=== PATIENT | male | born 1960 | race African-American/Black ===

== ENCOUNTER → 2016-12-24 | Outpatient (CLI) | payer BC ==
[~2016-12-24] MED LIST: ALLO100T PO; ATOR40TA70 PO; CHOL100026 PO; DIALYVITE PO; METO-296 PO; SEVE800T8 PO; [UNRECOGNIZED DRUG - OTHER] PO
== END | disposition home or self-care (01) ==
LOC: CT 08:57
PROVIDERS: ATTEND Urology
DX: Z00.01 Encounter for general adult medical examination with abnormal findings (principal); Z85.528 Personal history of other malignant neoplasm of kidney; Z90.5 Acquired absence of kidney
CPT/HCPCS: 74150

== ENCOUNTER → 2017-02-06 | Outpatient (CLI) | payer BC ==
[2017-02-07 10:09] LABS: HBSAG SCREEN Negative (Negative)
== END | disposition home or self-care (01) ==
LOC: LAB 06:36
PROVIDERS: ATTEND Internal Medicine Nephrology
DX: N18.6 End stage renal disease (principal)
CPT/HCPCS: 36415; 71010; 84550; 86803; 87186; 87340; 93005

== ENCOUNTER → 2017-03-18 | Outpatient (CLI) | payer BC ==
[2017-03-18 13:09] LABS: INR 1.1; PARTIAL THROMBOPLASTIN TIME 25.7 sec (24.0-34.0); PROTHROMBIN TIME 11.4 sec
[2017-03-18 13:12] LABS: BASOPHILS % 1.2 % (0.0-2.0); EOSINOPHILS % 1.8 % (0.0-5.0); HEMATOCRIT. 35.2 % (42.0-52.0); HEMOGLOBIN. 11.7 g/dL (14.0-18.0); LYMPHOCYTES % 25.3 % (20.0-50.0); MEAN CORPUSCULAR HEMOGLOBIN 31.9 pg (28.0-32.0); MEAN CORPUSCULAR VOLUME 95.6 fL (80.0-94.0); MEAN PLATELET VOLUME 8.4 fl (7.4-10.4); MONOCYTES % 8.6 % (2.0-8.0); NEUTROPHILS % 63.1 % (40.0-76.0); PLATELET 168 x1000/uL (130-400); RED BLOOD CELL COUNT 3.68 mill/uL (4.7-6.1); RED CELL DISTRIBUTION WIDTH 13.1 % (11.6-14.6)
[2017-03-18 13:30] LABS: CARBON DIOXIDE 29 mEq/L (21-32); CHLORIDE 99 mEq/L (98-107)
== END | disposition home or self-care (01) ==
LOC: LAB 12:39
DX: Z01.818 Encounter for other preprocedural examination (principal); N19 Unspecified kidney failure
CPT/HCPCS: 36415; 80053; 83615; 85025; 85610; 85730

== ENCOUNTER → 2017-03-26 | Outpatient (CLI) | payer BC ==
[~2017-03-26] MED LIST changes: +REGADENOSON 0.4 MG/5 ML IV ONE
== END | disposition home or self-care (01) ==
LOC: CARD 06:07
DX: Z01.818 Encounter for other preprocedural examination (principal); I10 Essential (primary) hypertension; Z85.53 Personal history of malignant neoplasm of renal pelvis
CPT/HCPCS: 71020; 78452; 93017; A9500; J2785

== ENCOUNTER → 2017-04-11 | Outpatient (CLI) | payer BC ==
[~2017-04-11] MED LIST changes: -CHOL100026 PO; +CHOL100044 PO; -METO-296 PO; +METO-396 PO; -REGADENOSON 0.4 MG/5 ML IV ONE
[2017-04-11 11:31] LABS: BASOPHILS % 0.5 % (0.0-2.0); EOSINOPHILS % 3.7 % (0.0-5.0); HEMOGLOBIN. 8.3 g/dL (14.0-18.0); LYMPHOCYTES % 9.5 % (20.0-50.0); MEAN CORPUSCULAR HEMOGLOBIN 30.6 pg (28.0-32.0); MEAN CORPUSCULAR VOLUME 92.4 fL (80.0-94.0); MEAN PLATELET VOLUME 7.3 fl (7.4-10.4); MONOCYTES % 9.1 % (2.0-8.0); NEUTROPHILS % 77.2 % (40.0-76.0); PLATELET 291 x1000/uL (130-400); RED CELL DISTRIBUTION WIDTH 13.7 % (11.6-14.6)
== END | disposition home or self-care (01) ==
LOC: LAB 11:04
DX: D64.9 Anemia, unspecified (principal); R19.7 Diarrhea, unspecified
CPT/HCPCS: 36415; 85025; 87493

== ENCOUNTER → 2017-05-07 | Outpatient (CLI) | payer BC | END | disposition home or self-care (01) | LOC: CARD 08:55 | PROVIDERS: ATTEND Specialist | DX: I10 Essential (primary) hypertension (principal); I51.81 Takotsubo syndrome; R94.31 Abnormal electrocardiogram [ECG] [EKG] | CPT/HCPCS: 93306 ==

== ENCOUNTER → 2017-05-28 | Outpatient (CLI) | payer BC | END | disposition home or self-care (01) | LOC: PVL 09:17 | PROVIDERS: ATTEND Surgery Vascular Surgery | DX: N18.6 End stage renal disease (principal); M79.602 Pain in left arm; Z99.2 Dependence on renal dialysis ==

== ENCOUNTER 2017-06-26 06:31 | Day surgery (SDC) | payer BC ==
[2017-06-26] MEDS ORDERED: LIDOCAINE HCL 1% 20ML VIAL (Pyxis) INJ ONE (07:30)
[2017-06-26] MEDS ORDERED: IOVERSOL 240MG/ML 100ML BOTTLE IV ONE (07:36)
[2017-06-26] MEDS ORDERED: IOHEXOL-300 100 ML BOTTLE ONE (07:37)
[2017-06-26] MEDS ORDERED: MIDAZOLAM HCL 2 MG/2 ML VIAL ONE (08:35)
[2017-06-26] MEDS ORDERED: FENTANYL CITRATE/PF 50MCG/ML 2ML VIAL ONE (08:35)
== END 2017-06-26 15:00 | disposition home or self-care (01) ==
LOC: CCL 06:31
PROVIDERS: ATTEND Specialist
DX: I42.0 Dilated cardiomyopathy (principal); I13.2 Hypertensive heart and chronic kidney disease with heart failure and with stage 5 chronic kidney disease, or end stage renal disease; I50.9 Heart failure, unspecified; N18.6 End stage renal disease; E78.5 Hyperlipidemia, unspecified; K21.9 Gastro-esophageal reflux disease without esophagitis; Z99.2 Dependence on renal dialysis
CPT/HCPCS: 36415; 80048; 93460; 99152; 99153; C1760; C1769; C1887; C1893; J1644; J2250; J3010; J3490; Q9967

== ENCOUNTER → 2017-07-29 | Day surgery (SDC) | payer BC, MEDICARE | END | disposition home or self-care (01) | LOC: CARD 07:29 | PROVIDERS: ATTEND Specialist | DX: I73.89 Other specified peripheral vascular diseases (principal) | CPT/HCPCS: 93225; 93226 ==

== ENCOUNTER → 2017-09-19 | Outpatient (CLI) | payer BC, MEDICARE ==
[2017-09-19 14:42] LABS: BASOPHILS % 1.2 % (0.0-2.0); EOSINOPHILS % 0.8 % (0.0-5.0); HEMATOCRIT. 36.4 % (42.0-52.0); LYMPHOCYTES % 16.1 % (20.0-50.0); MEAN CORPUSCULAR HEMOGLOBIN 32.3 pg (28.0-32.0); MEAN CORPUSCULAR VOLUME 97.7 fL (80.0-94.0); MEAN PLATELET VOLUME 7.5 fl (7.4-10.4); MONOCYTES % 5.9 % (2.0-8.0); PLATELET 250 x1000/uL (130-400); RED BLOOD CELL COUNT 3.73 mill/uL (4.7-6.1); RED CELL DISTRIBUTION WIDTH 17.6 % (11.6-14.6)
[2017-09-19 15:28] LABS: CHLORIDE 98 mEq/L (98-107)
== END | disposition home or self-care (01) ==
LOC: LAB 14:24
PROVIDERS: ATTEND Internal Medicine Hematology & Oncology
DX: C64.1 Malignant neoplasm of right kidney, except renal pelvis (principal)
CPT/HCPCS: 36415; 80053; 85025

== ENCOUNTER → 2017-10-09 | Outpatient (CLI) | payer BC, MEDICARE ==
[2017-10-09 11:02] LABS: BASOPHILS % 0.7 % (0.0-2.0); EOSINOPHILS % 0.8 % (0.0-5.0); HEMATOCRIT. 31.6 % (42.0-52.0); HEMOGLOBIN. 10.5 g/dL (14.0-18.0); LYMPHOCYTES % 11.9 % (20.0-50.0); MEAN CORPUSCULAR HEMOGLOBIN 33.3 pg (28.0-32.0); MEAN CORPUSCULAR VOLUME 100.3 fL (80.0-94.0); MEAN PLATELET VOLUME 8.7 fl (7.4-10.4); NEUTROPHILS % 72.6 % (40.0-76.0); PLATELET 183 x1000/uL (130-400); RED BLOOD CELL COUNT 3.15 mill/uL (4.7-6.1); RED CELL DISTRIBUTION WIDTH 14.3 % (11.6-14.6)
[2017-10-09 11:12] LABS: CHLORIDE 94 mEq/L (98-107)
== END | disposition home or self-care (01) ==
LOC: LAB 09:54
DX: C64.9 Malignant neoplasm of unspecified kidney, except renal pelvis (principal); R94.31 Abnormal electrocardiogram [ECG] [EKG]
CPT/HCPCS: 36415; 80053; 85025; 93005

== ENCOUNTER → 2017-11-12 | Outpatient (CLI) | payer BC ==
[2017-11-12 08:44] LABS: BASOPHILS % 0.7 % (0.0-2.0); HEMATOCRIT. 37.8 % (42.0-52.0); HEMOGLOBIN. 12.8 g/dL (14.0-18.0); LYMPHOCYTES % 20.3 % (20.0-50.0); MEAN CORPUSCULAR VOLUME 97.4 fL (80.0-94.0); MEAN PLATELET VOLUME 7.6 fl (7.4-10.4); MONOCYTES % 8.8 % (2.0-8.0); NEUTROPHILS % 68.2 % (40.0-76.0); PLATELET 188 x1000/uL (130-400); RED BLOOD CELL COUNT 3.88 mill/uL (4.7-6.1); RED CELL DISTRIBUTION WIDTH 14.5 % (11.6-14.6)
[2017-11-12 08:53] LABS: CHLORIDE 94 mEq/L (98-107)
== END | disposition home or self-care (01) ==
LOC: LAB 07:29
PROVIDERS: ATTEND Radiology Diagnostic Radiology
DX: C64.9 Malignant neoplasm of unspecified kidney, except renal pelvis (principal)
CPT/HCPCS: 36415; 80053; 85025

== ENCOUNTER → 2017-11-18 | Outpatient (CLI) | payer BC ==
[2017-11-18 09:24] LABS: BASOPHILS % 0.9 % (0.0-2.0); EOSINOPHILS % 2.1 % (0.0-5.0); HEMATOCRIT. 35.7 % (42.0-52.0); HEMOGLOBIN. 11.7 g/dL (14.0-18.0); LYMPHOCYTES % 34.6 % (20.0-50.0); MEAN CORPUSCULAR HEMOGLOBIN 32.2 pg (28.0-32.0); MEAN CORPUSCULAR VOLUME 98.5 fL (80.0-94.0); MEAN PLATELET VOLUME 7.5 fl (7.4-10.4); MONOCYTES % 9.8 % (2.0-8.0); NEUTROPHILS % 52.6 % (40.0-76.0); PLATELET 211 x1000/uL (130-400); RED BLOOD CELL COUNT 3.63 mill/uL (4.7-6.1); RED CELL DISTRIBUTION WIDTH 14.4 % (11.6-14.6)
[2017-11-18 09:31] LABS: CHLORIDE 97 mEq/L (98-107)
[2017-11-18 09:40] LABS: LDL CHOLESTEROL 52 mg/dL (5-100)
[2017-11-18 09:41] LABS: HDL CHOLESTEROL 100 mg/dL (40-59)
[2017-11-18 09:42] LABS: T4 FREE 0.72 ng/dL (0.76-1.46)
[2017-11-19 09:06] LABS: VITAMIN D 25-OH 49.9 ng/mL (30.0-100.0)
[2017-11-22 05:16] LABS: ALDOSTERONE 3.7 ng/dL (0.0-30.0)
== END | disposition home or self-care (01) ==
LOC: LAB 07:07
PROVIDERS: ATTEND Internal Medicine Endocrinology, Diabetes & Metabolism
DX: I10 Essential (primary) hypertension (principal); E78.5 Hyperlipidemia, unspecified; N19 Unspecified kidney failure; R73.9 Hyperglycemia, unspecified
CPT/HCPCS: 36415; 80053; 80061; 82024; 82088; 82306; 82533; 83036; 84439; 84443; 85025

== ENCOUNTER → 2017-12-15 | Outpatient (CLI) | payer BC ==
[2017-12-15 13:27] LABS: BASOPHILS % 1.1 % (0.0-2.0); EOSINOPHILS % 1.6 % (0.0-5.0); HEMATOCRIT. 36.6 % (42.0-52.0); HEMOGLOBIN. 12.1 g/dL (14.0-18.0); LYMPHOCYTES % 29.9 % (20.0-50.0); MEAN CORPUSCULAR HEMOGLOBIN 32.4 pg (28.0-32.0); MEAN CORPUSCULAR VOLUME 97.5 fL (80.0-94.0); MEAN PLATELET VOLUME 7.8 fl (7.4-10.4); MONOCYTES % 8.5 % (2.0-8.0); NEUTROPHILS % 58.9 % (40.0-76.0); PLATELET 189 x1000/uL (130-400); RED BLOOD CELL COUNT 3.75 mill/uL (4.7-6.1)
[2017-12-15 13:39] LABS: CHLORIDE 101 mEq/L (98-107)
[2017-12-15 13:48] LABS: T4 FREE 0.75 ng/dL (0.76-1.46)
== END | disposition home or self-care (01) ==
LOC: LAB 12:31
PROVIDERS: ATTEND Internal Medicine Nephrology
DX: C64.9 Malignant neoplasm of unspecified kidney, except renal pelvis (principal); N18.6 End stage renal disease; I51.7 Cardiomegaly; E03.9 Hypothyroidism, unspecified
CPT/HCPCS: 36415; 71045; 80053; 84439; 84443; 85025; 93005

== ENCOUNTER → 2018-02-09 | Outpatient (CLI) | payer BC | END | disposition home or self-care (01) | LOC: LAB 12:09 | PROVIDERS: ATTEND Radiology Diagnostic Radiology | DX: C64.9 Malignant neoplasm of unspecified kidney, except renal pelvis (principal); E03.9 Hypothyroidism, unspecified; I12.0 Hypertensive chronic kidney disease with stage 5 chronic kidney disease or end stage renal disease; N18.6 End stage renal disease; E78.5 Hyperlipidemia, unspecified | CPT/HCPCS: 36415; 80048 ==

== ENCOUNTER → 2018-03-09 | Outpatient (CLI) | payer BC | END | disposition home or self-care (01) | LOC: CARD 11:48 | PROVIDERS: ATTEND Specialist | DX: I12.0 Hypertensive chronic kidney disease with stage 5 chronic kidney disease or end stage renal disease (principal); N18.6 End stage renal disease; E78.5 Hyperlipidemia, unspecified; E03.9 Hypothyroidism, unspecified | CPT/HCPCS: 93005 ==

== ENCOUNTER → 2018-03-27 | Outpatient (CLI) | payer BC ==
[2018-03-27 08:35] LABS: BASOPHILS % 1.3 % (0.0-2.0); EOSINOPHILS % 3.7 % (0.0-5.0); HEMATOCRIT. 39.2 % (42.0-52.0); HEMOGLOBIN. 13.3 g/dL (14.0-18.0); LYMPHOCYTES % 19.2 % (20.0-50.0); MEAN CORPUSCULAR VOLUME 97.4 fL (80.0-94.0); MEAN PLATELET VOLUME 8.1 fl (7.4-10.4); MONOCYTES % 10.3 % (2.0-8.0); NEUTROPHILS % 65.5 % (40.0-76.0); PLATELET 247 x1000/uL (130-400); RED BLOOD CELL COUNT 4.02 mill/uL (4.7-6.1)
[2018-03-27 09:14] LABS: CHLORIDE 94 mEq/L (98-107)
[2018-03-27 09:25] LABS: LDL CHOLESTEROL 50 mg/dL (5-100)
[2018-03-27 09:27] LABS: T4 FREE 0.83 ng/dL (0.76-1.46)
[2018-03-27 09:28] LABS: HDL CHOLESTEROL 84 mg/dL (40-59)
[2018-03-28 09:08] LABS: VITAMIN D 25-OH 52.7 ng/mL (30.0-100.0)
== END | disposition home or self-care (01) ==
LOC: LAB 06:35
PROVIDERS: ATTEND Internal Medicine Endocrinology, Diabetes & Metabolism
DX: I10 Essential (primary) hypertension (principal); E78.5 Hyperlipidemia, unspecified; R73.9 Hyperglycemia, unspecified; Z79.899 Other long term (current) drug therapy
CPT/HCPCS: 36415; 80053; 80061; 82024; 82088; 82306; 82533; 83036; 84439; 84443; 85025

== ENCOUNTER → 2018-06-05 | Outpatient (CLI) | payer BC | END | disposition home or self-care (01) | LOC: LAB 06:39 | PROVIDERS: ATTEND Radiology Diagnostic Radiology | DX: N28.89 Other specified disorders of kidney and ureter (principal); R94.31 Abnormal electrocardiogram [ECG] [EKG] | CPT/HCPCS: 93005 ==

== ENCOUNTER → 2018-07-22 | Outpatient (CLI) | payer BC ==
[2018-07-22 13:50] LABS: BASOPHILS % 1.1 % (0.0-2.0); EOSINOPHILS % 3.7 % (0.0-5.0); HEMATOCRIT. 35.6 % (42.0-52.0); HEMOGLOBIN. 12.1 g/dL (14.0-18.0); LYMPHOCYTES % 25.4 % (20.0-50.0); MEAN CORPUSCULAR HEMOGLOBIN 32.6 pg (28.0-32.0); MEAN CORPUSCULAR VOLUME 95.7 fL (80.0-94.0); MEAN PLATELET VOLUME 8.1 fl (7.4-10.4); MONOCYTES % 7.9 % (2.0-8.0); NEUTROPHILS % 61.9 % (40.0-76.0); PLATELET 122 x1000/uL (130-400); RED BLOOD CELL COUNT 3.72 mill/uL (4.7-6.1); RED CELL DISTRIBUTION WIDTH 15.4 % (11.6-14.6)
[2018-07-22 13:51] LABS: PARTIAL THROMBOPLASTIN TIME 26.2 sec (23.4-31.0); PROTHROMBIN TIME 9.9 sec (9.1-11.1)
[2018-07-22 14:10] LABS: CHLORIDE 98 mEq/L (98-107)
[2018-07-22 14:18] LABS: HDL CHOLESTEROL 110 mg/dL (40-59); LDL CHOLESTEROL 52 mg/dL (5-100)
[2018-07-24 09:06] LABS: VITAMIN D 25-OH 50.4 ng/mL (30.0-100.0)
[2018-07-30 08:22] LABS: ALDOSTERONE < 1.0 ng/dL (0.0-30.0)
== END | disposition home or self-care (01) ==
LOC: LAB 06:43
PROVIDERS: ATTEND Internal Medicine Endocrinology, Diabetes & Metabolism
DX: I10 Essential (primary) hypertension (principal); R73.9 Hyperglycemia, unspecified; E55.9 Vitamin D deficiency, unspecified; E27.49 Other adrenocortical insufficiency
CPT/HCPCS: 36415; 80061; 82024; 82088; 82306; 82533; 83036

== ENCOUNTER → 2018-10-30 | Outpatient (CLI) | payer BC ==
[2018-10-30 12:11] LABS: EOSINOPHILS % 3.9 % (0.0-5.0); HEMATOCRIT. 33.1 % (42.0-52.0); HEMOGLOBIN. 11.1 g/dL (14.0-18.0); MEAN CORPUSCULAR HEMOGLOBIN 32.5 pg (28.0-32.0); MEAN CORPUSCULAR VOLUME 96.6 fL (80.0-94.0); MEAN PLATELET VOLUME 8.1 fl (7.4-10.4); MONOCYTES % 8.6 % (2.0-8.0); NEUTROPHILS % 58.5 % (40.0-76.0); PLATELET 233 x1000/uL (130-400); RED BLOOD CELL COUNT 3.42 mill/uL (4.7-6.1); RED CELL DISTRIBUTION WIDTH 14.4 % (11.6-14.6)
[2018-10-30 13:01] LABS: CHLORIDE 99 mEq/L (98-107)
[2018-10-30 13:08] LABS: LDL CHOLESTEROL 43 mg/dL (5-100)
[2018-10-30 13:10] LABS: HDL CHOLESTEROL 106 mg/dL (40-59)
[2018-10-31 09:06] LABS: VITAMIN D 25-OH 39.9 ng/mL (30.0-100.0)
[2018-11-03 13:06] LABS: ALDOSTERONE < 1.0 ng/dL (0.0-30.0)
== END | disposition home or self-care (01) ==
LOC: LAB 06:12
PROVIDERS: ATTEND Radiology Diagnostic Radiology
DX: M79.604 Pain in right leg (principal); E78.5 Hyperlipidemia, unspecified; I10 Essential (primary) hypertension; E55.9 Vitamin D deficiency, unspecified; R73.9 Hyperglycemia, unspecified; Z85.528 Personal history of other malignant neoplasm of kidney
CPT/HCPCS: 36415; 73552; 80061; 82024; 82088; 82306; 82533; 83036

== ENCOUNTER → 2018-12-14 | Outpatient (CLI) | payer BC | END | disposition home or self-care (01) | LOC: CARD 09:07 | PROVIDERS: ATTEND Specialist | DX: I31.3 Pericardial effusion (noninflammatory) (principal); I51.7 Cardiomegaly; I51.89 Other ill-defined heart diseases | CPT/HCPCS: 93306 ==

== ENCOUNTER → 2019-01-01 | Outpatient (CLI) | payer BC ==
[2019-01-02 13:15] LABS: HIV SCREEN 4G Non Reactive (Non Reactive)
== END | disposition home or self-care (01) ==
LOC: LAB 06:26
PROVIDERS: ATTEND Internal Medicine
DX: I12.0 Hypertensive chronic kidney disease with stage 5 chronic kidney disease or end stage renal disease (principal); N18.6 End stage renal disease
CPT/HCPCS: 36415; 71045; 86803; 87389; 93005

== ENCOUNTER → 2019-03-05 | Outpatient (CLI) | payer BC | END | disposition home or self-care (01) | LOC: LAB 07:12 | PROVIDERS: ATTEND Radiology Diagnostic Radiology | DX: C64.9 Malignant neoplasm of unspecified kidney, except renal pelvis (principal) | CPT/HCPCS: 36415; 80048 ==

== ENCOUNTER → 2019-04-14 | Outpatient (CLI) | payer MEDICARE ==
[2019-04-14 20:49] LABS: BASOPHILS % 1.3 % (0.0-2.0); EOSINOPHILS % 3.1 % (0.0-5.0); HEMATOCRIT. 29.4 % (42.0-52.0); HEMOGLOBIN. 10.2 g/dL (14.0-18.0); LYMPHOCYTES % 28.4 % (20.0-50.0); MEAN CORPUSCULAR HEMOGLOBIN 33.1 pg (28.0-32.0); MEAN CORPUSCULAR VOLUME 95.8 fL (80.0-94.0); MEAN PLATELET VOLUME 8.2 fl (7.4-10.4); MONOCYTES % 9.5 % (2.0-8.0); NEUTROPHILS % 57.7 % (40.0-76.0); PLATELET 152 x1000/uL (130-400); RED BLOOD CELL COUNT 3.07 mill/uL (4.7-6.1); RED CELL DISTRIBUTION WIDTH 14.4 % (11.6-14.6)
== END | disposition home or self-care (01) ==
LOC: LAB 20:12
PROVIDERS: ATTEND Internal Medicine Nephrology
DX: D63.1 Anemia in chronic kidney disease (principal)
CPT/HCPCS: 36415

== ENCOUNTER 2019-05-14 00:57 | Inpatient (IN) | payer BC, MEDICARE ==
[~2019-05-14] VITALS: Ht 165.1 cm; Wt 78.0 kg
[2019-05-14] VITALS (65 sets, daily range): BP systolic 66–141; BP diastolic 32–94
[2019-05-14] MEDS ORDERED: ONDANSETRON HCL 4MG/2ML INJ IV STA (01:50)
[2019-05-14] MEDS ORDERED: SODIUM CHLORIDE 0.9% 1,000 ML IV ONE (01:50)
[2019-05-14 02:08] LABS: BASOPHILS % 1.5 % (0.0-2.0); EOSINOPHILS % 3.3 % (0.0-5.0); HEMATOCRIT. 30.4 % (42.0-52.0); HEMOGLOBIN. 10.2 g/dL (14.0-18.0); LYMPHOCYTES % 30.4 % (20.0-50.0); MEAN CORPUSCULAR HEMOGLOBIN 32.3 pg (28.0-32.0); MEAN CORPUSCULAR VOLUME 96.8 fL (80.0-94.0); MONOCYTES % 9.6 % (2.0-8.0); NEUTROPHILS % 55.2 % (40.0-76.0); PLATELET 253 x1000/uL (130-400); RED BLOOD CELL COUNT 3.15 mill/uL (4.7-6.1); RED CELL DISTRIBUTION WIDTH 15.6 % (11.6-14.6)
[2019-05-14 02:12] LABS: CHLORIDE 100 mEq/L (98-107)
[2019-05-14 02:16] LABS: ETHANOL BLOOD < 10 mg/dL
[2019-05-14] MEDS ORDERED: LEVETIRACETAM 500MG PREMIX 100 ML IV ONE (03:30)
[2019-05-14] MEDS ORDERED: DEXAMETHASONE 10 MG/ML VIAL IV ONE (04:00)
[2019-05-14] MEDS ORDERED: MORPHINE SULFATE 2 MG/ML CPJ (NOT FOR IM USE) IV PRN (07:15)
[2019-05-14] MEDS ORDERED: DEXT 5%/0.9% NACL 1,000 ML IV SCH (07:15)
[2019-05-14] MEDS ORDERED: NICARDIPINE 100 MG in SODIUM CHLORIDE 0.9% 60 ML IV PRN (08:00)
[2019-05-14] MEDS: LEVETIRACETAM 500 MG in SODIUM CHLORIDE 0.9% 100 ML IV SCH ×2 (08:42→21:56)
[2019-05-14] MEDS: FAMOTIDINE 20MG/2ML VIAL IV SCH (08:42)
[2019-05-14] MEDS ORDERED: CARV3.1242 PO (09:24)
[2019-05-14] MEDS ORDERED: PARI2CAP3 MT (09:24)
[2019-05-14] MEDS ORDERED: LOSA25TA26 PO (09:24)
[2019-05-14] MEDS ORDERED: ASPI-1393 PO (09:24)
[2019-05-14 12:33] LABS: INR 1.1; PROTHROMBIN TIME 10.9 sec (9.6-11.0)
[2019-05-14] MEDS: DEXAMETHASONE 4MG/ML 1ML VIAL IV SCH ×3 (12:34→23:42)
[2019-05-14] MEDS ORDERED: MORPHINE SULFATE 10 MG/ML CPJ ONE (19:59)
[2019-05-14] MEDS ORDERED: CARVEDILOL 3.125 MG TABLET PO SCH (21:00)
[2019-05-14] MEDS: ATORVASTATIN CALCIUM 40MG TABLET PO SCH (21:56)
[2019-05-15] VITALS (89 sets, daily range): BP systolic 67–137; BP diastolic 31–102
[2019-05-15 05:47] LABS: BASOPHILS % 0.2 % (0.0-2.0); HEMATOCRIT. 23.6 % (42.0-52.0); HEMOGLOBIN. 8.1 g/dL (14.0-18.0); LYMPHOCYTES % 9.2 % (20.0-50.0); MEAN CORPUSCULAR HEMOGLOBIN 33.4 pg (28.0-32.0); MEAN CORPUSCULAR VOLUME 97.1 fL (80.0-94.0); MEAN PLATELET VOLUME 8.2 fl (7.4-10.4); NEUTROPHILS % 85.6 % (40.0-76.0); PLATELET 225 x1000/uL (130-400); RED BLOOD CELL COUNT 2.43 mill/uL (4.7-6.1); RED CELL DISTRIBUTION WIDTH 16.3 % (11.6-14.6)
[2019-05-15 05:53] LABS: INR 1.1; PARTIAL THROMBOPLASTIN TIME 25.9 sec (23.4-31.0); PROTHROMBIN TIME 10.9 sec (9.6-11.0)
[2019-05-15 06:28] LABS: PHOSPHORUS 4.6 mg/dL (2.5-4.9)
[2019-05-15] MEDS: DEXAMETHASONE 4MG/ML 1ML VIAL IV SCH ×3 (06:58→17:43)
[2019-05-15] MEDS ORDERED: NORMAL SALINE 0.9% 10 ML SYR ONE (07:19)
[2019-05-15] MEDS ORDERED: BACITRACIN 15GM TUBE TOP ONE (07:19)
[2019-05-15] MEDS ORDERED: LIDOCAINE HCL/EPINEPHRINE 1%-EPI 1:100,000 20 ML VIAL ONE (07:20)
[2019-05-15] MEDS ORDERED: THROMBIN (BOVINE) 5000 UNITS/VIAL TOP ONE (07:20)
[2019-05-15] MEDS ORDERED: BACITRACIN 50,000 UNITS/VIAL ONE (07:21)
[2019-05-15] MEDS: LEVETIRACETAM 500 MG in SODIUM CHLORIDE 0.9% 100 ML IV SCH ×2 (08:44→21:14)
[2019-05-15] MEDS: FAMOTIDINE 20MG/2ML VIAL IV SCH (08:44)
[2019-05-15] MEDS ORDERED: FOLIC ACID/VITAMIN B COMP W-C TABLET PO SCH (09:00)
[2019-05-15] MEDS: PARICALCITOL 1 MCG CAPSULE PO SCH (09:00)
[2019-05-15] MEDS ORDERED: FUROSEMIDE 40MG/4ML VIAL ONE (09:32)
[2019-05-15] MEDS ORDERED: MANNITOL 20% 0 ML IV ONE (09:32)
[2019-05-15] MEDS ORDERED: LIDOCAINE HCL/PF 1% 10 MG/ML 5ML VIAL ONE (09:42)
[2019-05-15] MEDS ORDERED: ONDANSETRON HCL 4MG/2ML INJ ONE (09:42)
[2019-05-15] MEDS ORDERED: PHENYLEPHRINE HCL 10 MG/ML 1ML (IV VIAL) IV ONE (09:42)
[2019-05-15] MEDS ORDERED: FENTANYL CITRATE/PF 50MCG/ML 2ML VIAL ONE ×2 (09:42→11:10)
[2019-05-15] MEDS ORDERED: SUCCINYLCHOLINE CHLORIDE 200MG/10ML IV ONE (09:42)
[2019-05-15] MEDS ORDERED: METOCLOPRAMIDE HCL 10MG/2ML VIAL ONE (09:42)
[2019-05-15] MEDS ORDERED: GLYCOPYRROLATE 0.2 MG/ML 2ML VIAL ONE (09:42)
[2019-05-15] MEDS ORDERED: CEFAZOLIN SODIUM 1000MG/VIAL ONE (09:42)
[2019-05-15] MEDS ORDERED: EPHEDRINE SULFATE 50MG/ML VIAL ONE (09:42)
[2019-05-15] MEDS ORDERED: MIDAZOLAM HCL 2 MG/2 ML VIAL ONE (09:42)
[2019-05-15] MEDS ORDERED: PROPOFOL 200MG/20ML VIAL IV ONE ×2 (09:42→11:22)
[2019-05-15] MEDS ORDERED: NEOSTIGMINE METHYLSULFATE 1MG/ML 10 ML VIAL ONE (09:42)
[2019-05-15] MEDS ORDERED: SODIUM CHLORIDE 0.9% 10ML VIAL ONE (09:42)
[2019-05-15] MEDS ORDERED: ROCURONIUM BROMIDE 10MG/ML VIAL 5ML IV ONE ×2 (09:42→09:44)
[2019-05-15] MEDS ORDERED: IPRATROPIUM/ALBUTEROL 0.5-3(2.5)MG/3ML NEB HHN PRN (09:45)
[2019-05-15] MEDS ORDERED: LEVETIRACETAM 500MG PREMIX 100 ML IV ONE (10:45)
[2019-05-15] MEDS ORDERED: DEXAMETHASONE 10 MG/ML VIAL IV ONE (10:45)
[2019-05-15] MEDS ORDERED: MORPHINE SULFATE 4 MG/ML CPJ (NOT FOR IM USE) IV PRN (12:45)
[2019-05-15] MEDS ORDERED: CEFAZOLIN SODIUM 1000MG/VIAL IV SCH (14:00)
[2019-05-15 14:29] LABS: HEMATOCRIT. 21.6 % (42.0-52.0); HEMOGLOBIN. 7.3 g/dL (14.0-18.0); MEAN CORPUSCULAR HEMOGLOBIN 33.3 pg (28.0-32.0); MEAN CORPUSCULAR VOLUME 97.9 fL (80.0-94.0); PLATELET 203 x1000/uL (130-400); RED CELL DISTRIBUTION WIDTH 16.1 % (11.6-14.6)
[2019-05-15] MEDS ORDERED: HYDROMORPHONE PCA 10MG/50ML IV PRN (14:30)
[2019-05-15] MEDS: DEXT 5%/0.9% NACL 1,000 ML IV SCH (14:30)
[2019-05-15] MEDS ORDERED: ONDANSETRON INJ IV PRN (14:30)
[2019-05-15] MEDS ORDERED: DIPHENHYDRAMINE INJ IV PRN (14:30)
[2019-05-15] MEDS ORDERED: NALOXONE INJ IV PRN (14:30)
[2019-05-15 14:57] LABS: PLATELET ESTIMATE NORMAL
[2019-05-15] MEDS ORDERED: CEFAZOLIN 1000MG PREMIX 50 ML IV SCH (18:00)
[2019-05-15] MEDS: MORPHINE SULFATE 2 MG/ML CPJ (NOT FOR IM USE) IV PRN (20:46)
[2019-05-15] MEDS: ATORVASTATIN CALCIUM 40MG TABLET PO SCH (21:00)
[2019-05-15 21:34] LABS: HEMATOCRIT. 23.8 % (42.0-52.0); MEAN CORPUSCULAR HEMOGLOBIN 32.4 pg (28.0-32.0); MEAN CORPUSCULAR VOLUME 96.7 fL (80.0-94.0); PLATELET 200 x1000/uL (130-400); RED BLOOD CELL COUNT 2.46 mill/uL (4.7-6.1); RED CELL DISTRIBUTION WIDTH 16.2 % (11.6-14.6)
[2019-05-15 23:03] LABS: PLATELET ESTIMATE NORMAL
[2019-05-16] VITALS (102 sets, daily range): BP systolic 103–187; BP diastolic 46–102
[2019-05-16] MEDS: DEXAMETHASONE 4MG/ML 1ML VIAL IV SCH ×4 (00:30→18:23)
[2019-05-16] MEDS: MORPHINE SULFATE 2 MG/ML CPJ (NOT FOR IM USE) IV PRN ×2 (04:17→08:19)
[2019-05-16 05:36] LABS: HEMATOCRIT. 25.3 % (42.0-52.0); HEMOGLOBIN. 8.5 g/dL (14.0-18.0); MEAN CORPUSCULAR HEMOGLOBIN 32.6 pg (28.0-32.0); MEAN CORPUSCULAR VOLUME 97.3 fL (80.0-94.0); MEAN PLATELET VOLUME 8.3 fl (7.4-10.4); PLATELET 211 x1000/uL (130-400); RED CELL DISTRIBUTION WIDTH 16.3 % (11.6-14.6)
[2019-05-16 06:19] LABS: PHOSPHORUS 7.5 mg/dL (2.5-4.9)
[2019-05-16] MEDS: FAMOTIDINE 20MG/2ML VIAL IV SCH (09:31)
[2019-05-16] MEDS: PARICALCITOL 1 MCG CAPSULE PO SCH (09:31)
[2019-05-16] MEDS: LEVETIRACETAM 500 MG in SODIUM CHLORIDE 0.9% 100 ML IV SCH ×2 (09:31→20:14)
[2019-05-16 09:41] LABS: PLATELET ESTIMATE NORMAL
[2019-05-16] MEDS ORDERED: MORPHINE SULFATE 2 MG/ML CPJ (NOT FOR IM USE) IV PRN (10:00)
[2019-05-16] MEDS: LOSARTAN POTASSIUM 50 MG TABLET PO SCH (10:45)
[2019-05-16] MEDS ORDERED: SODIUM BICARBONATE 8.4% 1 MEQ/ML 50ML SYR IV SCH (14:15)
[2019-05-16] MEDS: DEXT 5%/0.9% NACL 1,000 ML IV SCH (18:25)
[2019-05-16] MEDS: CARVEDILOL 6.25 MG TABLET PO SCH (20:14)
[2019-05-16] MEDS: ATORVASTATIN CALCIUM 40MG TABLET PO SCH (20:14)
[2019-05-16] MEDS: CLONIDINE 0.1MG TABLET PO PRN ×2 (23:39→23:42)
[2019-05-17] VITALS (93 sets, daily range): BP systolic 92–162; BP diastolic 33–127
[2019-05-17] MEDS: DEXAMETHASONE 4MG/ML 1ML VIAL IV SCH ×4 (00:52→17:19)
[2019-05-17 05:36] LABS: HEMATOCRIT. 23.7 % (42.0-52.0); HEMOGLOBIN. 8.2 g/dL (14.0-18.0); MEAN CORPUSCULAR HEMOGLOBIN 33.5 pg (28.0-32.0); MEAN PLATELET VOLUME 8.2 fl (7.4-10.4); PLATELET 202 x1000/uL (130-400); RED BLOOD CELL COUNT 2.45 mill/uL (4.7-6.1); RED CELL DISTRIBUTION WIDTH 16.2 % (11.6-14.6)
[2019-05-17 05:52] LABS: PHOSPHORUS 6.2 mg/dL (2.5-4.9)
[2019-05-17] MEDS: CARVEDILOL 6.25 MG TABLET PO SCH ×2 (08:46→20:21)
[2019-05-17] MEDS: LEVETIRACETAM 500 MG in SODIUM CHLORIDE 0.9% 100 ML IV SCH ×2 (08:46→20:20)
[2019-05-17] MEDS: PARICALCITOL 1 MCG CAPSULE PO SCH (08:47)
[2019-05-17] MEDS: LOSARTAN POTASSIUM 50 MG TABLET PO SCH (08:47)
[2019-05-17 09:12] LABS: PLATELET ESTIMATE NORMAL
[2019-05-17] MEDS: FAMOTIDINE 20MG/2ML VIAL IV SCH (09:37)
[2019-05-17] MEDS: MORPHINE SULFATE 2 MG/ML CPJ (NOT FOR IM USE) IV PRN (09:55)
[2019-05-17] MEDS ORDERED: SEVELAMER CARBONATE 800 MG TABLET PO SCH (12:45)
[2019-05-17] MEDS: CLONIDINE 0.1MG TABLET PO PRN (12:50)
[2019-05-17] MEDS: SEVELAMER CARBONATE 800 MG TABLET PO SCH (17:19)
[2019-05-17] MEDS: ATORVASTATIN CALCIUM 40MG TABLET PO SCH (20:21)
[2019-05-17] MEDS: CLONIDINE 0.1MG TABLET PO SCH (20:22)
[2019-05-17] MEDS ORDERED: EPOETIN ALFA 10000UNITS/ML VIAL SUBCUT SCH (21:00)
[2019-05-18] VITALS (23 sets, daily range): BP systolic 100–144; BP diastolic 47–83
[2019-05-18] MEDS: DEXAMETHASONE 4MG/ML 1ML VIAL IV SCH ×5 (00:06→23:37)
[2019-05-18] MEDS: CLONIDINE 0.1MG TABLET PO SCH (03:36)
[2019-05-18 05:30] LABS: HEMATOCRIT. 23.9 % (42.0-52.0); MEAN CORPUSCULAR HEMOGLOBIN 32.6 pg (28.0-32.0); MEAN CORPUSCULAR VOLUME 97.5 fL (80.0-94.0); PLATELET 202 x1000/uL (130-400); RED BLOOD CELL COUNT 2.45 mill/uL (4.7-6.1); RED CELL DISTRIBUTION WIDTH 16.3 % (11.6-14.6)
[2019-05-18] MEDS: SEVELAMER CARBONATE 800 MG TABLET PO SCH ×3 (06:01→16:48)
[2019-05-18] MEDS: CLONIDINE 0.1MG TABLET PO PRN (06:02)
[2019-05-18] MEDS ORDERED: CLONIDINE 0.1MG TABLET PO PRN (08:00)
[2019-05-18] MEDS ORDERED: BISACODYL 5MG TABLET PO PRN (08:45)
[2019-05-18] MEDS: CARVEDILOL 6.25 MG TABLET PO SCH ×2 (09:00→20:39)
[2019-05-18] MEDS: LOSARTAN POTASSIUM 50 MG TABLET PO SCH (09:00)
[2019-05-18] MEDS: LEVETIRACETAM 500 MG in SODIUM CHLORIDE 0.9% 100 ML IV SCH ×2 (09:38→21:06)
[2019-05-18] MEDS: DOCUSATE SODIUM 250MG CAPSULE PO SCH (09:38)
[2019-05-18] MEDS: FAMOTIDINE 20MG/2ML VIAL IV SCH (09:39)
[2019-05-18] MEDS: SODIUM CHLORIDE 45ML SPRAY NS SCH ×3 (10:36→20:39)
[2019-05-18] MEDS: PARICALCITOL 1 MCG CAPSULE PO SCH (13:43)
[2019-05-18 14:26] LABS: PLATELET ESTIMATE NORMAL
[2019-05-18] MEDS: ATORVASTATIN CALCIUM 40MG TABLET PO SCH (20:38)
[2019-05-19] VITALS (12 sets, daily range): BP systolic 117–133; BP diastolic 66–80
[2019-05-19 05:22] LABS: HEMATOCRIT 25.2 % (42.0-52.0); HEMOGLOBIN 8.6 g/dL (14.0-18.0); MEAN CORPUSCULAR HEMOGLOBIN 32.8 pg (28.0-32.0); MEAN CORPUSCULAR VOLUME 95.8 fL (80.0-94.0); PLATELET 205 x1000/uL (130-400); RED BLOOD CELL COUNT 2.63 mill/uL (4.7-6.1); RED CELL DISTRIBUTION WIDTH 16.1 % (11.6-14.6)
[2019-05-19 05:52] LABS: PHOSPHORUS 7.5 mg/dL (2.5-4.9)
[2019-05-19] MEDS: SEVELAMER CARBONATE 800 MG TABLET PO SCH (06:25)
[2019-05-19] MEDS: DEXAMETHASONE 4MG/ML 1ML VIAL IV SCH ×2 (06:25→13:29)
[2019-05-19] MEDS: SODIUM CHLORIDE 45ML SPRAY NS SCH ×2 (06:25→14:00)
[2019-05-19] MEDS: CARVEDILOL 6.25 MG TABLET PO SCH (08:14)
[2019-05-19] MEDS: LOSARTAN POTASSIUM 50 MG TABLET PO SCH (08:15)
[2019-05-19] MEDS: FAMOTIDINE 20MG/2ML VIAL IV SCH (08:41)
[2019-05-19] MEDS: LEVETIRACETAM 500 MG in SODIUM CHLORIDE 0.9% 100 ML IV SCH (08:41)
[2019-05-19] MEDS: DOCUSATE SODIUM 250MG CAPSULE PO SCH (08:41)
[2019-05-19] MEDS: PARICALCITOL 1 MCG CAPSULE PO SCH (08:45)
[2019-05-19] MEDS ORDERED: CARVEDILOL 3.125 MG TABLET PO SCH (09:00)
[2019-05-19] MEDS ORDERED: SEVELAMER CARBONATE 800 MG TABLET PO SCH (12:00)
[2019-05-19] MEDS ORDERED: LACTULOSE 20G/30ML UDC PO NR (15:15)
== END 2019-05-19 15:28 | disposition home or self-care (01) | DRG 25 ==
LOC: ER 00:57 → MICUSO 02:54 → ENRESERV 05:24 → 6EST 05-19 10:16
PROVIDERS: ADMIT Internal Medicine; ATTEND Internal Medicine
PROC: 5A1D70Z Performance of Urinary Filtration, Intermittent, Less than 6 Hours Per Day (ICD-10-PCS; 2019-05-14)
PROC: 30233N1 Transfusion of Nonautologous Red Blood Cells into Peripheral Vein, Percutaneous Approach (ICD-10-PCS; 2019-05-15)
PROC: 0NQ00ZZ Repair Skull, Open Approach (ICD-10-PCS; principal; 2019-05-18)
PROC: 00B00ZZ Excision of Brain, Open Approach (ICD-10-PCS; 2019-05-18)
PROC: 00U207Z Supplement Dura Mater with Autologous Tissue Substitute, Open Approach (ICD-10-PCS; 2019-05-18)
PROC: 5A1D70Z Performance of Urinary Filtration, Intermittent, Less than 6 Hours Per Day (ICD-10-PCS; 2019-05-18)
DX: C79.31 Secondary malignant neoplasm of brain (principal); G93.6 Cerebral edema; N18.6 End stage renal disease; C64.9 Malignant neoplasm of unspecified kidney, except renal pelvis; G93.40 Encephalopathy, unspecified; I42.0 Dilated cardiomyopathy; I50.22 Chronic systolic (congestive) heart failure; N25.81 Secondary hyperparathyroidism of renal origin; C78.00 Secondary malignant neoplasm of unspecified lung; I13.2 Hypertensive heart and chronic kidney disease with heart failure and with stage 5 chronic kidney disease, or end stage renal disease; I67.1 Cerebral aneurysm, nonruptured; E87.5 Hyperkalemia; E78.5 Hyperlipidemia, unspecified; D64.9 Anemia, unspecified; E78.00 Pure hypercholesterolemia, unspecified; K59.00 Constipation, unspecified; Z82.49 Family history of ischemic heart disease and other diseases of the circulatory system; Z80.0 Family history of malignant neoplasm of digestive organs; Z85.528 Personal history of other malignant neoplasm of kidney; Z83.3 Family history of diabetes mellitus; Z86.73 Personal history of transient ischemic attack (TIA), and cerebral infarction without residual deficits; Z99.2 Dependence on renal dialysis; Z90.5 Acquired absence of kidney; I49.3 Ventricular premature depolarization; J00 Acute nasopharyngitis [common cold]
CPT/HCPCS: 36415; 70544; 70553; 71045; 76942; 80048; 80320; 82330; 83735; 84100; 85027; 86850; 86900; 86920; 88305; 88331; 93005; 93306; 96365; 97116; 97163; 97166; 99291; C1713; J0330; J0690; J0885; J1100; J1170; J1940; J1953; J2250; J2270; J2370; J2405; J2704; J2710; J2765; J3010; J3490; J7030; J7042; J7050; J7620; P9016; G0480

== ENCOUNTER → 2019-06-02 | Outpatient (CLI) | payer BC, MEDICARE ==
[~2019-06-02] MED LIST changes: -ALLO100T PO; +ASPI-1393 PO; +CARV3.1242 PO; +IOHEXOL-12MG/ML 500 ML ORAL.CONC PO ONE; +IOHEXOL-300 100 ML BOTTLE ONE; +LOSA25TA26 PO; -METO-396 PO; +PARI2CAP3 MT
[2019-06-02 09:46] LABS: BASOPHILS % 1.4 % (0.0-2.0); EOSINOPHILS % 3.1 % (0.0-5.0); HEMATOCRIT. 27.1 % (42.0-52.0); HEMOGLOBIN. 9.2 g/dL (14.0-18.0); LYMPHOCYTES % 26.9 % (20.0-50.0); MEAN CORPUSCULAR HEMOGLOBIN 33.1 pg (28.0-32.0); MEAN CORPUSCULAR VOLUME 97.7 fL (80.0-94.0); MONOCYTES % 9.3 % (2.0-8.0); NEUTROPHILS % 59.3 % (40.0-76.0); PLATELET 193 x1000/uL (130-400); RED BLOOD CELL COUNT 2.77 mill/uL (4.7-6.1); RED CELL DISTRIBUTION WIDTH 15.8 % (11.6-14.6)
[2019-06-02 09:55] LABS: PARTIAL THROMBOPLASTIN TIME 25.2 sec (23.4-31.0); PROTHROMBIN TIME 10.2 sec (9.6-11.0)
[2019-06-02 10:05] LABS: CHLORIDE 106 mEq/L (98-107)
[2019-06-02 10:14] LABS: T4 FREE 0.78 ng/dL (0.76-1.46)
== END | disposition home or self-care (01) ==
LOC: CT 09:24
PROVIDERS: ATTEND Internal Medicine Hematology & Oncology
DX: K57.90 Diverticulosis of intestine, part unspecified, without perforation or abscess without bleeding (principal); K40.90 Unilateral inguinal hernia, without obstruction or gangrene, not specified as recurrent; C64.1 Malignant neoplasm of right kidney, except renal pelvis
CPT/HCPCS: 36415; 71260; 74177; 80053; 82533; 84439; 84443; 85025; 85610; 85730; J7517; Q9967

== ENCOUNTER → 2019-06-16 | Day surgery (SDC) | payer BC ==
[2019-06-16] VITALS (18 sets, daily range): BP systolic 122–147; BP diastolic 63–93
[~2019-06-16] VITALS: Ht 167.6 cm; Wt 70.3 kg
[~2019-06-16] MED LIST changes: +CEFAZOLIN 1000MG PREMIX 50 ML IV ONE; +CEFAZOLIN 1000MG PREMIX 50 ML IV SCH; +FENTANYL CITRATE/PF 50MCG/ML 2ML VIAL IV ONE; +FENTANYL CITRATE/PF 50MCG/ML 2ML VIAL ONE; +HEPARIN 1000 UNITS/ML 10ML ONE; -IOHEXOL-12MG/ML 500 ML ORAL.CONC PO ONE; -IOHEXOL-300 100 ML BOTTLE ONE; +IOHEXOL-300 50 ML BOTTLE IV ONE; +LIDOCAINE HCL 1% 20ML VIAL (Pyxis) INJ ONE; +LIDOCAINE HCL/EPINEPHRINE 1%-EPI 1:100,000 20 ML VIAL ONE; +MIDAZOLAM HCL 2 MG/2 ML VIAL ONE; +ONDANSETRON HCL 4MG/2ML INJ IV SCH; +ONDANSETRON HCL 4MG/2ML INJ ONE; +SODIUM BICARBONATE 4% (2.4MEQ) 5ML VIAL IV ONE
== END | disposition home or self-care (01) ==
LOC: RADANGIO 08:33
PROVIDERS: ATTEND Internal Medicine Hematology & Oncology
DX: C64.1 Malignant neoplasm of right kidney, except renal pelvis (principal); Z79.82 Long term (current) use of aspirin; Z79.899 Other long term (current) drug therapy; Z88.8 Allergy status to other drugs, medicaments and biological substances; Z80.0 Family history of malignant neoplasm of digestive organs; Z82.49 Family history of ischemic heart disease and other diseases of the circulatory system
CPT/HCPCS: 36561; 76937; 77001; 99152; 99153; C1769; J0690; J1644; J2405; J3010; J3490; Q9967; 36010; 75827; J2250; G0500